=== PATIENT | female | born 1985 | race Two or more races ===

== ENCOUNTER 2016-09-13 15:12 | Emergency (ER) | payer SELFPAY ==
[~2016-09-13] VITALS: Ht 160 cm; Wt 68.0 kg
[2016-09-13 15:20] VITALS: BP 104/71
[2016-09-13] MEDS ORDERED: traMADol 50mg tab ORAL ONE (15:30)
[2016-09-13 16:38] LABS: BASOPHILS % (AUTO) 0.5 % (0.0-2.0); EOSINOPHILS % (AUTO) 0.2 % (0.0-3.0); MEAN CORPUSCULAR HEMOGLOBIN 30.3 PG (27.0-31.0); MEAN CORPUSCULAR HGB CONC 34.6 G/DL (32.0-36.0); MEAN CORPUSCULAR VOLUME 88 FL (80-99); MONOCYTES % (AUTO) 5.5 % (1.0-10.0); NEUTROPHILS % (AUTO) 78.8 % (45.0-75.0); PLATELET COUNT 260 K/UL (150-450); RED BLOOD COUNT 4.95 M/UL (4.20-5.40); RED CELL DISTRIBUTION WIDTH 11.9 % (11.6-14.8); WHITE BLOOD COUNT 10.4 K/UL (4.8-10.8)
[2016-09-13 16:53] LABS: ANION GAP 15 (5-15); CALCIUM 9.3 mg/dL (8.6-10.2); CARBON DIOXIDE 25 mEQ/L (20-30); CHLORIDE 100 mEQ/L (98-107); CREATININE 0.6 mg/dL (0.5-0.9); GLOMERULAR FILTRATION RATE > 60 mL/min (>60); HEMOLYSIS 9; POTASSIUM 3.8 mEQ/L (3.4-4.9); SODIUM 140 mEQ/L (135-145)
--- NOTE | 2016-09-13 17:34 | Diagnostic Imaging Report ---
Clinical Indication:PAIN Technique: 3 views of the left wrist Comparison: None Findings: No acute fractures. No dislocations. Joint spaces are preserved Impression: Negative
[2016-09-13 19:03] VITALS: BP 99/65
[2016-09-13] MEDS ORDERED: CYCLOBENZAPRINE10 MG ORAL (19:03)
[2016-09-13] MEDS ORDERED: IBUPROFEN600 MG ORAL (19:03)
[2016-09-13 19:07] VITALS: BP 99/65
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
== END 2016-09-13 19:11 | disposition home or self-care (01) ==
LOC: EDBD 15:12 → EMR 16:26
DX: S30.1XXA Contusion of abdominal wall, initial encounter (principal); V43.52XA Car driver injured in collision with other type car in traffic accident, initial encounter; Y92.414 Local residential or business street as the place of occurrence of the external cause; M25.532 Pain in left wrist; K76.0 Fatty (change of) liver, not elsewhere classified; Z90.49 Acquired absence of other specified parts of digestive tract
CPT/HCPCS: 36415; 73110; 74177; 80048; 81025; 85025; 99284; Q9967